=== PATIENT | female | born 1995 | race Caucasian/White ===

== ENCOUNTER 2017-10-22 18:17 | Emergency (ER) | payer MEDICAID, SELFPAY ==
[2017-10-22] MEDS ORDERED: Naproxen 500 MG TAB ONE (20:04)
[2017-10-22] MEDS ORDERED: Phenergan/Codeine 10-6.25mg/5ml UDCUP ONE (20:04)
[2017-10-22] MEDS ORDERED: HYDROcodone/Acetaminophen 10/325 mg Tablet ONE (20:04)
[2017-10-22] MEDS ORDERED: AMOXicillin 250 MG CAP ONE (20:04)
== END 2017-10-22 20:17 | disposition home or self-care (01) ==
LOC: MADERS 18:17
DX: J02.9 Acute pharyngitis, unspecified (principal); F31.9 Bipolar disorder, unspecified
CPT/HCPCS: 99283